=== PATIENT | female | born 1985 | race Caucasian/White ===

== ENCOUNTER 2021-07-18 18:19 | Emergency (ER) | payer BC, SELFPAY ==
--- NOTE | ~2021-07-18 | XR_ITS ---
XR ankle RT min 3V DATE: 07/18/2021 18:40 INDICATION: Right ankle pain and swelling after rolling ankle TECHNIQUE: 4 views COMPARISON: None FINDINGS: There is mild to moderate lateral soft tissue swelling. No fracture or dislocation of the a nkle or disruption of the ankle mortise. No periosteal reaction or bone destruction. IMPRESSION: Mild to moderate lateral soft tissue swelling; no fracture or dislocation Reviewed, dictated and finalized at location A. IMPRESSION: Mild to moderate lateral soft tissue swelling; no fracture or dislo cation
[2021-07-18 18:29] VITALS: BP 104/61; PULSE 88; RESP 18; TEMP 37; O2SAT 98
--- NOTE | 2021-07-18 18:43 | ED.LOWEXIN ---
HPI - Extremity Injury (Lower) General Chief Complaint: Extremity Injury, Lower Stated Complaint: injury to right ankle Source: patient Mode of arrival: wheelchair Limitations: no limitations History of Present Illness HPI Narrative: Patient is a 36-year-old female who presents complaining of right ankle pain. Patient reports twisting ankle while standing earlier this afternoon. She reports falling and hitting buttocks. Patient is 27 weeks . She denies abdominal pain, lower back pain or vaginal bleeding. She denies all other complaints at this time. She reports taking Tylenol and resting injury and adding ice. She denies significant medical history. Related Data Home Medications Medication Instructions Recorded Confirmed PNV,calcium [id number] acid 1 tablet PO DAILY 07/18/21 07/18/21 [PrePlus] Allergies Allergy/AdvReac Type Severity Reaction Status Date / Time hydrocodone AdvReac Vomiting Verified 07/18/21 18:55 Review of Systems Review of Systems: CONSTITUTIONAL: Denies fever, chills, or sweats. EYES: Denies visual changes, redness, or discharge. ENT: Denies rhinorrhea, congestion, sore throat, or otalgia. CARDIOVASCULAR: Denies chest pain, palpitations, or edema. RESPIRATORY: Denies cough or dyspnea. GASTROINTESTINAL: Denies abdominal pain, nausea, vomiting, or diarrhea. GENITOURINARY: Denies dysuria or hematuria. SKIN: Denies rash or itching. MUSCULOSKELETAL: Right ankle pain NEUROLOGIC: Denies headache, numbness, dizziness, or weakness. PSYCHIATRIC: Denies anxiety or depression. [facility] Past Medical History Medical History (Updated 07/18/21 @ 18:52 by AVERY Fragoso) Allergies Surgical History Surgical History No history of previous surgery Family History Family History Father Hypertension Mother No problems noted. Social History Social History Smoking status: Never smoker Second hand tobacco smoke exposure: No Alcohol intake: current Substance use: never Gender identity (if verbalized by the patient): Female Comments At the time of signature, I have reviewed and agree with nursing past medical, surgical, social, and family history unless otherwise noted. Please see nursing chart for further information. There is no relevant family history pertinent to the presenting complaint. Exam Narrative: GENERAL: Well-appearing, well-nourished, and in no acute distress. HEAD: Normocephalic, atraumatic. EYES: EOMI. No redness or drainage. Conjunctiva are normal. ENT: Mucous membranes pink and moist. Nares clear. No rhinorrhea. TMs normal bilaterally. Throat normal. Uvula midline. NECK: AROM. Supple. No lymphadenopathy. CHEST: No respiratory distress. Clear to auscultation. HEART: Regular rate and rhythm. No murmur appreciated. Normal peripheral pulses. GI: Soft, nontender without rebound, or guarding. No distention. Bowel sounds normal in all quadrants. MUSCULOSKELETAL: No bony tenderness. EXTREMITIES: Normal range of motion. Right ankle lateral edema and tenderness with palpation, distal sensation intact, good capillary refill, pain with range of motion SKIN: Warm, dry, no rash. NEURO: No focal deficits. Alert and oriented x3. Gait steady. PSYCH: Normal affect. No signs of depression or anxiety. Course Vital Signs Vital signs: Vital Signs Temperature 37.0 C 07/18/21 18:29 Pulse Rate 88 07/18/21 18:29 Respiratory Rate 18 07/18/21 18:29 Blood Pressure 104/61 07/18/21 18:29 Pulse Oximetry 98 07/18/21 18:29 Temperature 37.0 C 07/18/21 18:29 Pulse Rate 88 07/18/21 18:29 Respiratory Rate 18 07/18/21 18:29 Blood Pressure 104/61 07/18/21 18:29 Pulse Oximetry 98 07/18/21 18:29 Reviewed Procedures Orthopedic Splinting/Casting Injury #1: Si
== END 2021-07-18 19:10 | disposition home or self-care (01) ==
PROVIDERS: Emergency Provider Nurse Practitioner; PCP Nurse Practitioner
DX: O26.892 Other specified pregnancy related conditions, second trimester (principal); S93.401A Sprain of unspecified ligament of right ankle, initial encounter; S96.911A Strain of unspecified muscle and tendon at ankle and foot level, right foot, initial encounter; Z3A.27 27 weeks gestation of pregnancy; X50.1XXA Overexertion from prolonged static or awkward postures, initial encounter; W19.XXXA Unspecified fall, initial encounter
CPT/HCPCS: 73610; 99213; G0463

== ENCOUNTER 2023-04-12 12:12 | Outpatient (CLI) | payer BC, SELFPAY ==
--- NOTE | ~2023-04-12 | US_ITS ---
EXAMINATION:US venous doppler LE LT INDICATION:Leg swelling TECHNIQUE: Multiple grayscale, color flow and Doppler images of the left lower extremity deep venous systems were obtained and reviewed. COMPARISON:No prior studies for comparison. FINDINGS: The common femoral, superficial femoral and popliteal veins demonstrate normal respiratory variation, augmentation and compressibility. Color flow is also seen within the posterior tibial, pe roneal, greater saphenous and profunda veins. IMPRESSION: 1: No lower extremity deep venous thrombosis. Reviewed, dictated and finalized at location L.
== END 2023-04-12 12:13 | disposition home or self-care (01) ==
LOC: ANHIMG 18:09
PROVIDERS: PCP Nurse Practitioner; Visit Provider Physician Assistant
DX: R60.0 Localized edema (principal)
CPT/HCPCS: 93971

== ENCOUNTER → 2023-08-01 08:53 | Outpatient (CLI) | payer BC, SELFPAY ==
--- NOTE | ~2023-08-01 | US_ITS ---
EXAMINATION: US abdomen complete DATE: 08/01/2023 09:49 INDICATION: Abnormal liver function tests. TECHNIQUE: Multiple grayscale and Doppler ultrasound images of the abdomen were obtained. COMPARISON: None FINDINGS: The visualized portions of the head, body, and tail of the pancreas are normal. The liver i s normal without focal lesion. There is normal flow in main portal vein. The gallbladder is normal in size. No gallstones or gallbladder wall thickening. There is no sonographic Gan sign. The common duct is normal and measures 4 mm. The aorta is normal in caliber. The inferior vena cava is normal. T he kidneys are normal in size. The spleen is normal in size. IMPRESSION: 1. Normal complete abdomen ultrasound. Reviewed, dictated and finalized at location E.
== END ==
PROVIDERS: PCP Physician Assistant; Visit Provider Physician Assistant
DX: R74.01 Elevation of levels of liver transaminase levels (principal)
CPT/HCPCS: 76700

== ENCOUNTER 2023-08-10 00:05 | Day surgery (SDC) | payer BC, SELFPAY ==
[2023-08-03 08:59] VITALS: BMI 26.7
--- NOTE | 2023-08-09 15:16 | PM.HPGS ---
History of Present Illness History of Present Illness Consent: Risks, benefits, and alternatives have been discussed and questions answered. Patient agrees to proceed with procedure. Chief complaint: Irritable bowel syndrome with constipation Narrative: Tessa Light is a 38 year old female referred for investigation of a change in bowel habits. She has developed worsening constipation Beginning about 2 years ago. He may not have a bowel movement for 2-3 days. At times her stools can be soft and often she feels as though she is not empty she has no blood her stools. There is no family history of colorectal malignancy. Review of Systems Review of Systems: All systems reviewed & are unremarkable except as noted in HPI and below PMFSH Past Medical History Medical History Allergies Surgical History Surgical History No history of previous surgery Family History Family History Father Hypertension Mother No problems noted. Social History Social History Smoking status: Never smoker Second hand tobacco smoke exposure: No Alcohol intake: current Drinks per week: 2 Substance use: never Substance use type: does not use Living arrangements: other Gender identity (if verbalized by the patient): Female Meds Home Medications and Allergies Home Medications Medication Instructions Recorded Confirmed Type vitamin with calcium 1 tablet PO DAILY 07/18/21 08/10/23 History no.72-iron 27 mg-folic acid 1 mg tablet (PrePlus) loratadine 10 mg tablet (Claritin) 10 mg PO DAILY 08/03/23 08/10/23 History Allergies Allergy/AdvReac Type Severity Reaction Status Date / Time hydrocodone AdvReac Vomiting Verified 08/10/23 09:52 Exam Const: General: alert Orientation/consciousness: patient oriented x3 Resp: Auscultation: clear to auscultation bilaterally Cardio: Rate: regular rate Rhythm: regular rhythm GI: GI Palp: Yes Soft to palpation and No Tenderness to palpation present (GI) Neuro: General: patient oriented x3 Assessment and Plan Assessment and plan (1) Change in bowel habits: Code(s): R19.4 - Change in bowel habit Status: Acute Assessment and Plan: Colonoscopy with possible biopsy or polypectomy or cautery or injection of substances.
[2023-08-10] MEDS: LACTATED RINGERS 1,000 ML 150 ML IV CONT (09:51)
[2023-08-10 09:53] VITALS: BP 114/76; PULSE 66; RESP 16; TEMP 36.3; O2SAT 97; BMI 25.5
--- NOTE | 2023-08-10 10:39 | WPDANESEPPF ---
Anes - Initial Pre Proc Eval Procedure: Operation Date: 08/10/23 11:00 Proposed Procedures p Colonoscopy - Morgan Blas MD Date/Time: 08/10/23 10:39 Surgeon: Morgan Blas MD Pre Op Diagnosis: Irritable bowel syndrome with constipation Patient Data Age: 38 Gender: F Height: 1.7 m Weight: 74 kg Last Vital Signs Temp 97.4 F L 08/10/23 09:53 Pulse 66 08/10/23 09:53 Resp 16 08/10/23 09:53 BP 114/76 08/10/23 09:53 Pulse Ox 97 08/10/23 09:53 O2 Del Method Room Air 08/10/23 09:53 Allergies Allergy/AdvReac Type Severity Reaction Status Date / Time hydrocodone AdvReac Vomiting Verified 08/10/23 09:52 Home Medications Medication Instructions Recorded Confirmed Type vitamin with calcium 1 tablet PO DAILY 07/18/21 08/10/23 History no.72-iron 27 mg-folic acid 1 mg tablet (PrePlus) loratadine 10 mg tablet (Claritin) 10 mg PO DAILY 08/03/23 08/10/23 History Patient hx anesthesia problems: none Family hx anesthesia problems: none Results Review: All pre-operative results and documents have been reviewed as part of the pre-operative evaluation. [facility] Past Medical History Medical History Allergies Surgical History Surgical History No history of previous surgery Family History Family History Father Hypertension Mother No problems noted. Social History Social History Smoking status: Never smoker Second hand tobacco smoke exposure: No Alcohol intake: current Drinks per week: 2 Substance use: never Substance use type: does not use Living arrangements: other Gender identity (if verbalized by the patient): Female Anes - Eval Final PreProcedure Day of Procedure 08/10/23 10:39 Patient weight: normal Heart: regular rate and rhythm Lungs: clear to auscultation Airway: Mallampati scale class II Neurological: alert and oriented Last oral intake: >/= 8 hours ASA classification: II Emergent: no Anesthetic plan: proceed Anesthesia type and monitoring: general GIVS and standard monitoring Results Review: All pre-operative results and documents have been reviewed as part of the pre-operative evaluation. Informed Consent: The patient's anesthetic plan and its attendant risks and benefits were discussed with the patient/family/POA. Questions were solicited and answers provided to the satisfaction of the patient/family/POA.
[2023-08-10 11:15] VITALS: BP 100/60; PULSE 68; RESP 18; O2SAT 99
[2023-08-10 11:25] VITALS: BP 103/70; PULSE 70; RESP 18; O2SAT 100
[2023-08-10 11:35] VITALS: BP 106/75; PULSE 62; RESP 20; O2SAT 100
== END 2023-08-10 11:45 | disposition home or self-care (01) ==
PROVIDERS: PCP Physician Assistant; Visit Provider Internal Medicine Gastroenterology
PROC: 0DJD8ZZ Inspection of Lower Intestinal Tract, Via Natural or Artificial Opening Endoscopic (ICD-10-PCS; CPT 45378; principal; 2023-08-10 11:00)
DX: K59.00 Constipation, unspecified (principal)
CPT/HCPCS: 45378; J2704; J7120

== ENCOUNTER → 2023-08-29 08:12 | Outpatient (CLI) | payer BC, SELFPAY ==
--- NOTE | ~2023-08-29 | CT_ITS ---
. EXAMINATION: CT abdomen pelvis w con DATE: 08/29/2023 08:45 INDICATION: Elevated liver enzymes TECHNIQUE: Computed tomography (CT) of the abdomen and pelvis was performed with 100 CC Omnipaque 350 intravenous contrast. Automated exposure control and iterative reconstruction technique were employe d. Exam dose: 652.11 mGy-cm total exam DLP. COMPARISON: 08/01/2023 complete abdominal ultrasound examination, reported normal FINDINGS: The lung bases are clear of infiltrate or consolidation. Normal heart size. No pericardial or pleural effusion. There is diffuse hepatic steatosis. No hepatic, splenic, pancreatic, adrenal or renal space-occupying mass lesion is detected. The gallbladder is present. No gallbladder wall thickening or pericholecyst ic fluid or fat stranding. No bile duct or pancreatic duct dilatation. No urinary tract calculus or hydroureteronephrosis. Normal caliber of the abdominal aorta. No intraperitoneal or retroperitoneal or pelvic mass lesion or adenopathy or ascites. The urinary bladder appears normal. Retroverted uterus. Bilateral ovarian cysts, measuring up to approximately 1.9 cm on the right with 4 cm on the left. Normal appendix. No bowel obstruction, bowel wall thickening, pneumatosis or intraperitoneal free air . Small fat-containing umbilical hernia. Included skeletal structures are unremarkable. IMPRESSION: Hepatic steatosis Normal appendix Retroverted uterus Bilateral ovarian cysts Reviewed, dictated and finalized at Location A. Reviewed, dictated and finalized at location L.
--- NOTE | ~2023-08-29 | XR_ITS ---
XR ankle LT min 3V DATE: 08/29/2023 08:22 INDICATION: Pain and swelling laterally. No injury. TECHNIQUE: 4 views COMPARISON: None FINDINGS: No soft tissue swelling is noted. No fracture or dislocation of the ankle or disruption of the ankle mortise. No periosteal reaction or bone destruction. IMPRESSION: Negative Reviewed, dictated and finalized at location L. IMPRESSION: Negative
== END ==
PROVIDERS: PCP Physician Assistant; Visit Provider Physician Assistant
DX: R74.01 Elevation of levels of liver transaminase levels (principal); M25.572 Pain in left ankle and joints of left foot; K76.0 Fatty (change of) liver, not elsewhere classified; N85.4 Malposition of uterus; N83.202 Unspecified ovarian cyst, left side; N83.201 Unspecified ovarian cyst, right side
CPT/HCPCS: 73610; 74177; Q9967

== ENCOUNTER 2023-11-23 18:56 | Emergency (ER) | payer SELFPAY ==
--- NOTE | 2023-11-23 19:10 | ED.EAR ---
HPI - Ear Problem General Chief complaint: Ear Stated complaint: bilateral ear pain Time Seen by Provider: 11/23/23 19:10 Source: patient Mode of arrival: ambulatory Limitations: no limitations History of Present Illness HPI Narrative: Estelle is a 38-year-old female patient presenting to the clinic today with complaints of bilateral ear pain x2 days. Notes that she has had decreased hearing, feeling of fullness, and drainage coming from the ears. History of tubes in the ears. Denies fever or chills. Does have nasal congestion with sinus drainage Related Data Home Medications Medication Instructions Recorded Confirmed loratadine 10 mg tablet (Claritin) 10 mg PO DAILY 08/03/23 11/23/23 Allergies Allergy/AdvReac Type Severity Reaction Status Date / Time hydrocodone AdvReac Vomiting Verified 11/23/23 19:18 Review of Systems Review of Systems: Pertinent positives per HPI. Patient denies any fever, chills, rash, headache, visual changes, dizziness, cough, shortness of breath, chest pain, palpitations, nausea, vomiting, diarrhea, constipation, abdominal pain, or any urinary issues. PMFSH Past Medical History Medical History Allergies Surgical History Surgical History No history of previous surgery Family History Family History Father Hypertension Mother No problems noted. Social History Social History Smoking status: Never smoker Second hand tobacco smoke exposure: No Alcohol intake: current Drinks per week: 2 Substance use: never Substance use type: does not use Living arrangements: other Gender identity (if verbalized by the patient): Female Comments At the time of my signature, I reviewed and agree with the nursing past medical, surgical, social, and family history. There is no relevant family history pertinent to the patient complaint. Exam Narrative: General: Well-developed, well nourished, in no apparent distress Head: Normocephalic, atraumatic Eyes: Pupils equally round and reactive to light bilaterally, EOM intact, sclera and conjunctive clear, no discharge, lids normal Ears: TMs intact and congested, ear canals clear, no drainage, grossly hearing normal. Nose: Nares patent, clear nasal discharge, no inflammation, no sinus tenderness. Mouth: Oral pharynx without lesions or masses, good dentition, MMM. Neck: Supple, trachea midline, no enlargement of anterior or posterior cervical nodes, no thyroid masses or goiter palpable. Cardio: Regular rate and rhythm, s1 and s2 normal, no murmur appreciated. Resp: Clear to auscultation bilaterally, no rhonchi, rales, wheezing or rubs Course Course Emergency Course: Portions of this record may have been created with voice recognition software. Level of Care: Express Care Visit Vital Signs Vital signs: Vital signs reviewed Medical Decision Making MDM Narrative Medical decision making narrative: At the time of visit patient is resting comfortably on the exam table. Patient appears to be nontoxic. Plan: I suspect patient has serous otitis. Prescription for prednisone was sent to the pharmacy. Supportive measures were discussed with the patient and they voiced understanding discharge instructions and agrees to treatment plan. Return precautions reviewed Differential Diagnosis Differential Diagnosis: Otitis media, otitis externa, eustachian tube dysfunction, upper respiratory infection, serous otitis Discharge Plan Discharge Clinical Impression: Acute serous otitis media Qualifiers: Laterality: bilateral Recurrence: non-recurrent Qualified Code(s): H65.03 - Acute serous otitis media, bilateral Patient Disposition: Home, Self-Care Condition: Stable Instructions:
[2023-11-23 19:19] VITALS: BP 109/73; PULSE 66; RESP 16; TEMP 36.6; O2SAT 98
== END 2023-11-23 19:27 | disposition home or self-care (01) ==
PROVIDERS: Emergency Provider Nurse Practitioner Family; PCP Physician Assistant
DX: H65.03 Acute serous otitis media, bilateral (principal); Z79.899 Other long term (current) drug therapy
CPT/HCPCS: 99213; G0463

== ENCOUNTER 2023-12-30 19:40 | Emergency (ER) | payer BC, SELFPAY ==
[2023-12-30 20:00] VITALS: BP 129/80; PULSE 79; RESP 18; TEMP 36.6; O2SAT 100
--- NOTE | 2023-12-30 20:16 | ED.URI ---
HPI - URI/Sore Throat General Chief Complaint: Upper Respiratory Infection Stated Complaint: sorethroat Time Seen by Provider: 12/30/23 20:05 Source: patient Mode of arrival: ambulatory Limitations: no limitations History of Present Illness HPI Narrative: Estelle is a 38-year-old female patient presenting to the clinic today with complaints of a sore throat. States her whole family has tested positive for strep today in the clinic. MD elicited complaint: sore throat and nasal congestion Related Data Home Medications Medication Instructions Recorded Confirmed loratadine 10 mg tablet (Claritin) 10 mg PO DAILY 08/03/23 12/30/23 Allergies Allergy/AdvReac Type Severity Reaction Status Date / Time hydrocodone AdvReac Vomiting Verified 12/30/23 20:02 Review of Systems Review of Systems: Pertinent positives per HPI. Patient denies any fever, chills, rash, headache, visual changes, dizziness, cough, shortness of breath, chest pain, palpitations, nausea, vomiting, diarrhea, constipation, abdominal pain, or any urinary issues. PMFSH Past Medical History Medical History (Updated 12/30/23 @ 20:17 by Yoel White APRN) Allergies Surgical History Surgical History No history of previous surgery Family History Family History Father Hypertension Mother No problems noted. Social History Social History Smoking status: Never smoker Second hand tobacco smoke exposure: No Alcohol intake: current Drinks per week: 2 Substance use: never Substance use type: does not use Living arrangements: other Gender identity (if verbalized by the patient): Female Comments At the time of my signature, I reviewed and agree with the nursing past medical, surgical, social, and family history. There is no relevant family history pertinent to the patient complaint. Exam Narrative: General: Well-developed, well nourished, in no apparent distress Head: Normocephalic, atraumatic Eyes: Pupils equally round and reactive to light bilaterally, EOM intact, sclera and conjunctive clear, no discharge, lids normal Ears: TMs intact and congested, ear canals clear, no drainage, grossly hearing normal. Nose: Nares patent, clear discharge, no inflammation, no sinus tenderness. Mouth: Oral pharynx red without lesions or masses, good dentition, MMM. Neck: Supple, trachea midline, no enlargement of anterior or posterior cervical nodes, no thyroid masses or goiter palpable. Cardio: Regular rate and rhythm, s1 and s2 normal, no murmur appreciated. Resp: Clear to auscultation bilaterally, no rhonchi, rales, wheezing or rubs Course Course Emergency Course: Portions of this record may have been created with voice recognition software. Level of Care: Express Care Visit Vital Signs Vital signs: Vital Signs Temperature 36.6 C 12/30/23 20:00 Pulse Rate 79 12/30/23 20:00 Respiratory Rate 18 12/30/23 20:00 Blood Pressure 129/80 12/30/23 20:00 Pulse Oximetry 100 12/30/23 20:00 Oxygen Delivery Room Air 12/30/23 20:00 Temperature 36.6 C 12/30/23 20:00 Pulse Rate 79 12/30/23 20:00 Respiratory Rate 18 12/30/23 20:00 Blood Pressure 129/80 12/30/23 20:00 Pulse Oximetry 100 12/30/23 20:00 Oxygen Delivery Room Air 12/30/23 20:00 Vital signs reviewed MDM - URI/Sore Throat MDM Narrative Medical decision making narrative: At the time of visit patient is resting comfortably on the exam table. Patient appears to be nontoxic. Plan: I suspect patient has pharyngitis with strep exposure. Will go ahead and prescribe amoxicillin and if symptoms worsen recommend mother start taking it since the whole family has strep. Supportive measures were discussed with the patient and they voiced understanding nico
== END 2023-12-30 20:20 | disposition home or self-care (01) ==
PROVIDERS: Emergency Provider Nurse Practitioner Family; PCP Physician Assistant
DX: J02.9 Acute pharyngitis, unspecified (principal); Z20.818 Contact with and (suspected) exposure to other bacterial communicable diseases
CPT/HCPCS: 87081; 87880; 99213; G0463

== ENCOUNTER 2024-07-26 17:09 | Emergency (ER) | payer BC, SELFPAY ==
--- NOTE | 2024-07-26 17:15 | ED.URI ---
HPI - URI/Sore Throat General Chief Complaint: Upper Respiratory Infection Stated Complaint: cold symptoms Time Seen by Provider: 07/26/24 17:15 Source: patient, RN notes reviewed and old records reviewed Mode of arrival: ambulatory Limitations: no limitations History of Present Illness HPI Narrative: 39-year-old female presents to the [facility] with complaints of sore throat, runny nose, nonproductive cough for 5-7 days. Patient reports her son tested positive for strep. Denies any medications prior to arrival Related Data Home Medications Medication Instructions Recorded Confirmed loratadine 10 mg tablet (Claritin) 10 mg PO DAILY 08/03/23 07/26/24 escitalopram oxalate 10 mg tablet 10 mg DIRECTED 07/26/24 07/26/24 Allergies Allergy/AdvReac Type Severity Reaction Status Date / Time hydrocodone AdvReac Vomiting Verified 07/26/24 17:19 Review of Systems Review of Systems: All systems reviewed & are unremarkable except as noted in HPI and below Constitutional: Constitutional: Reports no additional constitutional complaints Eyes: Eyes: Reports no additional eye complaints ENT: Reports as per HPI Cardiovascular: Cardiovascular: Reports no additional cardiovascular complaints, Denies chest pain and Denies dyspnea Respiratory: Respiratory: Reports as per HPI, Denies chest congestion, Reports cough and Denies dyspnea Gastrointestinal: Gastrointestinal: Reports no additional gastrointestinal complaints, Denies abdominal pain, Denies nausea and Denies vomiting Musculoskeletal: Musculoskeletal: Reports no additional musculoskeletal complaints Integumentary/Breasts: Skin/Breast: Reports system reviewed and no additional complaints, except as docu Neurologic: Reports system reviewed and no additional complaints, except as documented Psychiatric: Psychiatric: Reports no additional psychiatric complaints Allergic/Immunologic: Allergic/Immunologic: Reports no additional allergic/immunologic complaints [facility] Past Medical History Medical History (Updated 07/27/24 @ 19:19 by Belem Bond APRN) Allergies Surgical History Surgical History No history of previous surgery Family History Family History Father Hypertension Mother No problems noted. Social History Social History Smoking status: Never smoker Second hand tobacco smoke exposure: No Alcohol intake: current Drinks per week: 2 Substance use: never Substance use type: does not use Living arrangements: other Gender identity (if verbalized by the patient): Female Comments At the time of my signature, I reviewed and agree with the nursing past medical, surgical, social, and family history. There is no relevant family history pertinent to the patient complaint. Exam Const: General: cooperative, healthy appearing, comfortable, no acute distress, well developed, alert and well nourished Nutritional Appearance: well nourished Orientation/consciousness: patient oriented x3 Limitations: no limitations HENMT: Head: normal to inspection Ears: hearing grossly normal bilaterally, external ears normal, TM's normal bilaterally, EAC's normal, mastoids normal, no periauricular adenopathy and TM abnormal perforated without discharge (chronic) on the right Face/Nose/Sinus: Normal external nose present, Normal nares present, Normal nasal mucous membranes and turbinates present, normal facial exam and face symmetric Face and sinus: normal facial exam and face symmetric Mouth: Yes Normal oral and palatal mucosa present, Yes lip normal and Yes tongue normal Throat: tonsils normal, uvula midline, postnasal drainage and no uvular edema Eyes: General: appearance normal, both eyes and all related structures Alignment and Position: alignment normal Periorbital: periorbital findings normal
[2024-07-26 17:19] VITALS: BP 104/75; PULSE 69; RESP 14; TEMP 36.2; O2SAT 100
[2024-07-26 17:20] VITALS: BP 104/75; PULSE 69; RESP 14; TEMP 36.2; O2SAT 100
[2024-07-29 14:27] LABS: EDSTREPNEGPOS1 Negative (Negative)
== END 2024-07-26 17:34 | disposition home or self-care (01) ==
PROVIDERS: Emergency Provider Nurse Practitioner
DX: J06.9 Acute upper respiratory infection, unspecified (principal); J02.9 Acute pharyngitis, unspecified
CPT/HCPCS: 87081; 87880; 99213; G0463

== ENCOUNTER 2025-10-24 08:03 | Emergency (ER) | payer BC, SELFPAY ==
--- OUTSIDE RECORDS SUMMARY | 2013-12-17 09:08 | XMS_ITS | Continuity of Care Document ---
Author Organization [facility] Address [address] [facility] [address] [place] [address] Phone Care Team Providers Care Supervisor Fertilizer Name Role Phone Maximus Santana MD Unavailable Unavailable Allergies, Adverse Reactions, Alerts Substance Reaction Status Criticality No Known allergies Medications Medication Instructions Dosage Effective Dates (start - stop) Status Comments tizanidine 4 mg tablet take 1 tablet by oral route at bedtime - Active tizanidine 4 mg tablet take 1 tablet by oral route at bedtime - No Longer Active Procedures Procedure Date OFFICE/OUTPATIENT VISIT [facility] Advance Directives Directive Yes / No Effective Date File Name No Information Encounters Encounter Description Practice Location Reason(s) For Visit Diagnoses Date Provider Providers Copied on Encounter [facility], [address] [place] [address], [address], tel:[phone] [facility] No Information 4 Max Stroud. [address] [place], [place], [id number] . tel: [phone] [facility], [address] [place] [address], [address], [place] tel:[phone] [facility] No Information 4 Max Stroud. [address] [place], [place], [id number] . tel: [phone] OFFICE/OUTPAT IENT VISIT [facility], [address] [place] [address], [place], [address], tel:[phone] [facility] Low back pain 4 Max Stroud. [address] [facility], [place], [place], [id number] . tel: [phone] Referring Provider: Adithya Moncada, [address] [place], [address] . tel:[phone] Family History Family Member Type Diagnosis Age At Onset No Information Payers Payer name Insurance type Covered libertarian ID Authoriza tion(s) No Information Social History Type Description Quantity Date Captured Comments Sex Female Smoking Status No Information Chief Complaint And Reason For Visit No Information Reason For Referral Reason For Referral No Information History Of Present Illness Encounter Date Complaint History Of Prese nt Illness No Information Functional Status Date Functional Assessmen t No Information Medications Administered Medication Instructions Dosage Effective Dates (start - stop) Status Comments tizanidine 4 mg tablet take 1 tablet by oral route at bedtime - No Longer Active Instructions Date Instruction Additional Infor gabriella advised against bed rest exceeding 4 days maintain normal activity Physical activity counseling Rel ated to Dietary Surveillance Counseling Assessments Type Assessment Date No Information Patient Care Teams Name Effective Dates (start - stop) Status Members No Information
--- NOTE | ~2025-10-24 | CT_ITS ---
EXAMINATION: CTA BRAIN/CAROTID DATE: 10/24/2025 11:04 INDICATION: Neck pain and visual changes TECHNIQUE: Computed tomographic angiography (CTA) of the head and neck was performed with 100 mL Omnipaque-350 intravenous contrast. Multiplanar reconstructions and maximum intensity projection 3D-reconstructions of the carotid arteries and of the intracranial arteries were created by the technologist on a separate workstation. Precontrast CT of the head was also obtained. Automated exposure control and iterative reconstruction technique were employed.The dose-length product was 1709.13 mGy-cm. COMPARISON: None. FINDINGS: Head: No acute intracranial hemorrhage, acute infarction or abnormal extra axial fluid collection. Ventricles are normal and symmetric. No mass/mass effect. No abnormally enhancing brain lesions on postcontrast imaging. The orbits and mastoid air cells are normal. Mucosal thickening in the paranasal sinuses, moderate at the right maxillary sinus and mild at the left frontal, ethmoid and maxillary sinuses. Intracranial arteries Vertebral arteries are codominant. There is no hemodynamically significant stenosis in the vertebral, basilar and internal carotid arteries. Both A1 and P1 segments are patent. There are no aneurysms identified. Cerebral arterial arborization appears symmetric. Carotid arteries: The aortic arch and the great vessels arising from the arch are normal in caliber with no dissection or hemodynamically significant stenosis. There is no evident atherosclerotic plaque with 0% stenosis of the right and left carotid bulbs relative to normal distal artery lumen diameter (NASCET criteria). Visualized upper lungs are clear. Cervical soft tissues are unremarkable. Mild to moderate lower cervical predominant spondylosis. IMPRESSION: 1. No evident atherosclerotic plaque with 0% stenosis of the right and left carotid bulbs relative to normal distal artery lumen diameter (NASCET criteria). 2. No acute intracranial process or abnormally enhancing brain lesions. 3. Unremarkable cerebral CT angiogram with no hemodynamically significant stenosis, aneurysm or thrombosis. Reviewed, dictated and finalized at location A. ATOR IMPRESSION: 1. No evident atherosclerotic plaque with 0% stenosis of the right and left car otid bulbs relative to normal distal artery lumen diameter (NASCET criteria). 2. No acute intracranial process or abnormally enhancing brain lesions. 3. Unremarkable cerebral CT angiogram with no hemodynamically significant steno sis, aneurysm or thrombosis.
--- OUTSIDE RECORDS SUMMARY | 2025-10-24 08:05 | XMS_ITS | Data Portability ---
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 Plan of Treatment Reminders Order Date Submit Date Provider Last Modified By Organization Details Last Modified Time Details Appointments None recorded. Lab TSH + free T4, serum 2024 025 [employer] [place] [address], [address], 5 14:22:15 lipid panel, serum 2024 025 [employer] [place] [address], [address], 5 14:22:15 CMP, serum or plasma 2024 025 [employer] [facility], [address] [place] [address], [address], 5 14:22:14 CBC w/ auto diff 2024 025 [employer] [place] [address], [address], 5 14:22:15 HbA1c (hemoglobi n A1c), blood 2024 025 [employer] [place] [address] [place], [address], 5 14:22:15 TSH + free T4, serum 2023 024 [facility], [address], [address], 4 16:27:03 lipid panel, serum 2023 024 [facility], [address], [address], 4 16:27:03 CMP, serum or plasma 2023 [facility], [address], [address], 4 10:04:27 CBC w/ auto diff 2023 024 [facility] [employer] [facility], [address] [address], [place], [address], 4 10:04:27 HbA1c (hemoglobi n A1c), blood 2023 024 [facility] [employer] [facility], [address], [address], 4 10:04:27 Referral otolaryngo logist referral [address] [address] [facility], [address] [facility], [address], [place], [address], 5 13:59:31 Procedures None recorded. Surgeries None recorded. Imaging None recorded. Medication Orders escitalopr am 10 mg tablet 2024 025 [facility], [address], [place], [place], [phone], 5 09:01:57 escitalopr am 10 mg tablet [address] [id number], [address], [place], [place], [phone], 5 09:02:31 bupropion HCl XL 150 mg 24 hr tablet, extended release [address] [id number], [address], [place], [place], [id number], 4 18:14:52 Patient TargetsNo targets recorded. 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 Problems Name Problem SNOMED Code Status Onset Date Resolution Date Notes Provider Name and Address Organization Details Recorded Time Body mass index 25-29 - overweight 061238003 Active 025 Herman Vance MA null, [place] - [place] 5 08:52:12 Mild recurrent major depression 14636750 Active 025 FREDI Alfonso Attn: Ursula desai,[address] [facility], [place], [address] [place] [address] - [place] 5 13:52:56 Problem Notes None recorded. Procedures Surgical History Date Name Laterality Status Provider Name and Address Organization Details Recorded Time Dilation and Curettage completed Imelda Colón MA [facility] 02/09/2024 09:24:21 Imaging Results None recorded. Procedure Notes None recorded. Medical Equipment None Reported. Allergies No known drug allergies Medications Name Sig Start Date Stop Date Status Note LastModified by Organization Details LastModified Time prednisone 20 mg tablet TAKE 2 TABLETS BY MOUTH DAILY FOR 5 DAYS 02/08 completed Not Available Not Available Not Available amoxicillin 875 mg tablet TAKE 1 TABLET BY MOUTH EVERY 12 HOURS FOR 10 DAYS 02/08 completed Not Available Not Available Not Available triamterene 37.5 mg-hydrochlo rothiazide 25 mg tablet TAKE 1 TABLET BY MOUTH EVERY DAY 02/08 completed Not Available Not Available Not Available escitalopram 10 mg tablet TAKE 1 TABLET BY MOUTH EVERY DAY active Not Available Not Available No t Available bupropion HCl XL 150 mg 24 hr tablet, extended release Take 1 tablet every day by oral route. 04/25 completed Not Available Not Available Not Available Lo Loestrin Fe 1 mg-10 mcg (24)/10 mcg (2) tablet TAKE 1 TABLET BY MOUTH DAILY 02/08 completed Not Available Not Available Not Available Vitals Date Recorded Respiratory rate Provider Name a nd Address Organization Details Last Updated DateTime 11/27/2024 16 /min FREDI Alfonso Attn: Accounting,[address] [place], [address], [facility] 11/27/2024 13:50:20 Date Recorded Body height Body mass index (BMI) Body weight Oxygen saturation Heart rate Systolic And Diastolic Provider Name and Address Organization Details Last Updated DateTime 5 170.18 cm 26.3 kg/m2 38541.5 2 g 97 % 77 /min 116/72 mm[Hg] Herman Vance MA ID - [facility] 5 08:55:32 Date Recorded Systolic And Diastolic Provider Name and Address Organization Details Last Updated DateTime 02/09/2024 120/80 mm[Hg] FREDI Alfonso Attn: Accounting,[address] [place], [address], [facility] 02/09/2024 09:35:49 Date Recorded Body height Body mass index (BMI) Body weight Heart rate Body temperature Oxygen saturation Systolic And Diastolic Provider Name and Address Organization Details Last Updated DateTime 4 170.18 cm 25.7 kg/m2 93919.5 9 g 64 /min 98.2 [degF] 98 % 100/74 mm[Hg] Imelda Colón MA ID - [place] 09:16:49 Social History Question Answer Notes LastModified by Organizat ion Details LastModified Time Tobacco Smoking Status Never Smoker Imelda Colón MA null, [facility] 02/09/2024 09:24:53 Do You Have An Advance Directive? No Information n ot available 11/27/2024 Are You Blind Or Do You Have Difficulty Seeing? No Information n ot available 02/09/2024 What Is Your Level Of Caffeine Consumption? Heavy Information not available 11/27/2024 In The 14 Days Before Symptom Onset, Have You Had Close Contact With A Laboratory-confirm ed COVID-19 While That Case Was Ill? No Information n ot available 11/27/2024 In The 14 Days Before Symptom Onset, Have You Had Close Contact With A Person Who Is Under Investigation For COVID-19 While That Person Was Ill? No Information not available 11/27/2024 Have You Been To An Area Known To Be High Risk For COVID-19? No Information not available 11/27/2024 Are You Deaf Or Do You Have Serious Difficulty Hearing? No Information not available 02/09/2024 What Type Of Diet Are You Following? REGULAR Information n ot available 11/27/2024 What Was The Date Of Your Most Recent Tobacco Screening? 11/27/2024 Information not available 11/27/2024 Do You Use Your Seat Belt Or Car Seat Routinely? Yes Information not available 11/27/2024 Do You Have Smoke And Carbon Monoxide Detectors In Your Home? Yes Information not available 11/27/2024 Has Tobacco Cessation Counseling Been Provided? No Information not available 11/27/2024 Sex: Female Functional Status Question Answer Note LastModified by Organizat ion Details LastModified Time Do you use any illicit or recreational drugs? No Information not available 11/27/2024 Do you or have you ever used any other forms of tobacco or nicotine? No Information not available 11/27/2024 What is your level of alcohol consumption? Occasional Information not available 02/09/2024 Are you currently employed? Yes Information not available 11/27/2024 Are you able to care for yourself independently? Yes Information not available 02/09/2024 Mental Status None recorded. Family History Relationship Description Onset Age of this Age Resolved Age Notes LastModified by Organization Details LastModified Time Father Dementia [email or web address] Not availabl e 02/09/2024 09:24:31 Father Hypertensive disorder [email or web address] Not available 2023 09:24:38 Father Hypercholest erolemia apaytonma Not available 2023 09:24:43 Mother Hypertensive disorder apaytonma Not available 2023 09:24:38 Medical History Condition Response Allergies Y Gynecological History Statement/Question Response Frequency of Cycle (Q days) 29 Date of LMP 11/25/2024 Menses Monthly Y Duration of Flow (days) 4 Current Control Method None LMP Approximate Obstetrics History GPAL:G 0 P 0 0 0 0 Immunizations Vaccine Type Date Status Note Provider Nam e and Address Organization Details Recorded Time COVID-19, mRNA, LNP-S, PF, 30 mcg/0.3 mL dose 01/12/2021 completed Herman Vance [place] null, [place] [facility] 11/27/2024 08:50:45 COVID-19, mRNA, LNP-S, PF, 30 mcg/0.3 mL dose 02/07/2021 completed Herman Vance [place], [place] [facility] 11/27/2024 08:50:45 COVID-19, mRNA, LNP-S, PF, 30 mcg/0.3 mL dose 09/10/2021 completed Herman V[place], [place] [facility] 11/27/2024 08:50:45 COVID-19, mRNA, LNP-S, bivalent, PF, 30 mcg/0.3 mL dose 08/17/2022 completed Herman V[place] [facility] 11/27/2024 08:50:45 Influenza, split virus, quadrivalent, PF 07/29/2020 completed Herman V[place] [facility] 11/27/2024 08:50:45 Influenza, split virus, quadrivalent, PF 08/03/2023 completed Herman V[place], [place] [facility] 11/27/2024 08:50:45 Influenza, split virus, quadrivalent, PF 08/17/2022 completed Herman V[place] [facility] 11/27/2024 08:50:45 Influenza, split virus, quadrivalent, PF 09/26/2018 completed Herman V[place] [facility] 11/27/2024 08:50:45 Past Encounters Encounter ID Performer Location Encounter Start Date Encounter Closed Date Diagnosis/Indication Diagnosis SNOMED-CT Code Diagnosis ICD10 Code Diagnosis IMO Codes Diagnosis Note [id number] Shai Rice MD [facility] [employer] [address] [place] [address] 02/09/2024 08:56:51 02/09/2024 09:45:00 Pain of left ankle joint 9965989911 7569916 M25.572 proper shoe wear and if pain continues, she is to see team ortho doctor through her work as [employer] employee. Mild recur rent major depression 60894956 F33.0 start trial of wellbutrin XL 150mg daily. Pt to seek ER with any S.I. She will call with any intoleranc e, side effects or lack of efficacy issues. Long-term drug therapy 124444107 Z79.899 routine CMP and CBC ordered. Cholesterol screening 27 6865471 Z13.220 fasting lipids ordered Diabetes m ellitus screening 872704077 Z13.1 a1c screening ordered Thyroid di sorder screening 406752837 Z13.29 Thyroid panel ordered. 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 Cholesterol screening 27 2368282 Z13.220 fasting lipids ordered Diabetes m ellitus screening 719504712 Z13.1 a1c screening ordered Thyroid di sorder screening 946673309 Z13.29 Thyroid panel ordered. Health Concerns Section Related Observation LastModified by Organization Detai ls LastModified Time None Recorded Concern Status LastModified by Organization Details LastModified Time None Recorded Advance Directives Directive N: Payers Insurance Date Sequence Insurance Name Policy Number Policy Freire Covered Member ID Freire Member ID Guarantor Name 11/29/2024 1 [employer] [id number] Tessa B Nadege [id number] Tessa Nadege 11/29/2024 1 [place] [id number] Tessa Nadege [id number] Tessa Nadege Notes Date Note Type Note Provider Name and Address Organization Details Recorded Time 02/09/20 24 text/ht ml Anxiety/DepressionReported by PatientHPIFor quality, patient reportsmood worse. For associated symptoms, patient reportsdepressionbut reportsdenies homicidal ideations,no significant weight gain, andno significant weight loss. For severity, patient reportsdenies suicidal ideations,able to maintain relationships, anddoes not interfere with activities of daily living. For duration, patient reportssymptoms lasting over 2 weeks. For onset/timing, patient reportsstill present. For context, patient reportsno major life stressors. Musculoskeletal PainReported by PatientHPIFor quality, patient reportsdull. For location, patient reportsleft ankle. For severity, patient reportssame. For duration, patient reportspresent <1 month. For timing, patient reportsconstant. For context, patient reportstrauma. For alleviating factors, patient reportsrest. For aggravating factors, patient reportsmovement/positioningandtwi sting. For associated symptoms, patient reportsno fever,no weak limbs,no tingling, andno numbness of the legs/feet. FREDI Alfonso Attn: Accounting, [address] [place], [address], [place] [facility] 02/26/2024 23:18:11 11/27/19 25 text/ht ml Anxiety/DepressionReported by PatientHPIFor associated symptoms, patient reportsanxietyanddepressionbut reportsdenies homicidal ideations,no significant weight gain, andno significant weight loss. For quality, patient reportssymptoms improved. For severity, patient reportsdenies suicidal ideations,able to maintain relationships, anddoes not interfere with activities of daily living. For duration, patient reportsstablizing. For context, patient reportsno major life stressors.Patient is significantly better on Lexapro 10 mg daily and is so happy with the results and efficacy FREDI Alfonso Attn: Accounting, [address] [place], [address], [facility] - [facility] 11/27/2024 13:53:43 OBGyn Episode No OBEpisode recorded.
--- OUTSIDE RECORDS SUMMARY | 2025-10-24 08:05 | XMS_ITS | Clinical Summary ---
Author Organization [facility] Address [address] [place] [address] Care Team Providers Care Mainspring Former Brace End Name Role Phone Unavailable Primary Care Provider Unavailabl e Allergies Active Allergy Reactions Criticality Noted Date Comments Hydrocodone Other (See Comments) 11/13/2020 nausea Medications fluticasone propionate (FLONASE) 50 mcg/spray [place], Suspension nasal inhaler Administer 2 Sprays in each nostril. Active multivitamin (DAILY-MARTÍN) tablet Take 1 Tablet by mouth daily. Active CALCIUM CARBONATE-VITAM IN D3 ORAL Take by mouth. Acti ve CYANOCOBALAMIN, VITAMIN B-12, ORAL Take by mouth. Activ e loratadine (CLARITIN) 10 mg tablet Take 10 mg by mouth daily. Active Active Problems Problem Noted Date Diagnosed Date Status post section 10/11/2021 Resolved Problems Problem Noted Date Diagnosed Date Resolved Date Encounter for elective induction of labor 07/23/2019 02/26/2021 12/29/15, girl 12/29/2015 05/17/2017 History of colonoscopy 04/07/201401/04 Overview (04/07/2014): EGD She has a history of treated bacterial overgrowth EGD and Colonoscopy were normal Encounters Date Type Department Care Team Description 10/21/2025 External Device Data STL ABSTRACTION Provider, Abstract 09/16/2025 External Device Data STL ABSTRACTION Provider, Abstract 08/27/2025 External Device Data STL ABSTRACTION Provider, Abstract 08/27/2025 External Device Data STL ABSTRACTION Provider, Abstract 08/07/2025 10:15 AM CDT Clinical Support [facility] [employer] Nurse Navigation [id number] [place] [address] Need for influenza vaccination (Primary Dx) from Last 3 Months Immunizations Immunization Administration Dates Next Due (ADACEL/BOOSTRIX)(10 YR UP) TDAP VACCINE, 0.5ML, IM 08/19/2021,10/15/2015 INFLUENZA VACCINE QUADRIVALE NT 3 YR UP PF IM 08/08/2017 INFLUENZA VACCINE QUADRIVALE NT 6 MOS UP PF IM 08/03/2023,07/21/2021,07/27/2020,2018 INFLUENZA VACCINE TRIVALENT SPLIT VIRUS, (6 MOS UP), 0.5ML (PF), IM 08/07/2025,07/30/2024 Influenza, Unspecified Formulation 07/21,07/27/2020,07/25/2019,2017,08/08/2017 Rho (D) IMMUNE GLOBULIN 1,50 0 UNIT(300 MCG) INJECTION 12/30/2015 Family History Medical History Relation Name Comments Healthy Brother 1 Healthy Brother 2 Hypertension Father Colon Cancer Maternal Grandmother age 85 Healthy Mother Other Paternal Grandfather Alzheim ers Relation Name Status Comments Brother 1 Alive Brother 2 Alive Father Alive Maternal Grandfather Alive Maternal Grandmother Mother Alive Paternal Grandfather Paternal Grandmother Social History Tobacco Use Types Packs/Day Years Used Date Smoking Tobacco: Never Smokeless Tobacco: Never Alcohol Use Standard Drinks/Week Comments Yes 1.7 (1 standard drink = 0.6 oz p ure alcohol) socially Comments No Sex and Gender Information Value Date Recorded Sex Assigned at Not on file Legal Sex Female 12:06 PM CDT Gender Identity Not on file Sexual Orientation Not on file Last Filed Vital Signs Vital Sign Reading Time Taken Comments Blood Pressure 102/78 11/23/2023 3:52 PM ELECTRICAL WORKER Pulse 71 09/11/2023 12:56 PM ELECTRICAL WORKER Temperature 36.1 C (97 F) 09/11/2023 12:56 PM ELECTRICAL WORKER Respiratory Rate 12 09/11/2023 12:56 PM ELECTRICAL WORKER Oxygen Saturation 98% 09/11/2023 12:56 PM ELECTRICAL WORKER Inhaled Oxygen Concentration - - Weight 72.6 kg (160 lb) 03/07/2024 12:55 PM CDT Height 167.6 cm (5' 6) 03/07/2024 12:55 PM CDT Body Mass Index 25.82 03/07/2024 12:55 PM CDT Plan of Treatment Upcoming Encounters Date Type Department Care Team (Late st Contact Info) Description 11/19/2025 11:40 AM ELECTRICAL WORKER Office Visit [facility] CLOTH TEARER Medical [facility] [address] [facility] [address] [place] [address] Valerie Martinez NP [address] [facility] [address] [place] [id number] Health Maintenance Due Date Last Done Comments HEPATITIS B VACCINES (1 of 3 - 19+ 3-dose series) 2006 PAP SMEAR 11/23/2026 11/23/2023, 09/29, 05/11/2020, Additional history exists CERVICAL CANCER SCREENING 11/23/2028 HPV/Cotest (21-29) 11/23/2028 11/23/2023, 1 12/13/2021, 05/11/2020 HPV/Cotest (30-65) 11/23/2028 11/23/2023, 1 12/13/2021, 05/11/2020 DTAP/TDAP/TD VACCINES (3 - T d or Tdap) 08/19/2031 08/19/2021, 10/15/2015 INFLUENZA VACCINE Completed 08/07/2025, , 08/03/2023, Additional history exists HPV VACCINES (No Doses Required) Completed Procedures Procedure Name Priority Date/Time Associated Diagnosis Comments CERV/VAG CYTO AGE BASED SCREEN PAP Routine 11/23/2023 4:58 PM ELECTRICAL WORKER Encounter for gynecological examination without abnormal finding Screening for human papillomavirus (HPV) from Last 3 Months or Most Recently Relevant to Health Maintenance Results * CERV/VAG CYTO AGE BASED SCREEN PAP (11/23/2023 4:58 PM ELECTRICAL WORKER) COMMENT (PAP): [facility] [place] Comment: This order for age-based cervical cancer and STI screening follows ACOG guidelines(PB 168, 140, KZP434). See individual assays for performing site location. CLINICAL INFORMATION [facility] [place] Comment:Routine exam LAST MENSTRUAL PERIOD [facility] [place] Comment:11/13/2023 PREV PAP: [facility] [place] Comment:10/12/2022 NIL PREV BX: [facility] [place] Comment:NONE GIVEN SOURCE [facility] [place] Comment:Endocervix ADEQUACY: [facility] [place] Comment: Satisfactory for evaluation. Endocervical/transformation zone component present. PAP INTERP [facility] [place] Comment: Cytology Results: Negative for intraepithelial lesion or malignancy. COMMENT (PAP TEST) [facility] [place] Comment: This Pap test has been evaluated with computer assisted technology. PRODUCT DEVELOPER: Deepika Prather[facility] [place] Comment: INDY MCNALLY(ASCP) CT Screening location: [facility] [place] [address] EXPLANATORY NOTE [facility] [place] Comment: EXPLANATORY NOTE: The Pap is a screening test for cervical cancer. It is not a diagnostic test and is subject to false negative and false positive results. It is most reliable when a satisfactory sample, regularly obtained, is submitted with relevant clinical findings and history, and when the Pap result is evaluated along with historic and current clinical information. HPV E6/E7 Not Detected Not Detected [facility] [place] Comment: Methodology: Vocational Coordinator-Mediated Amplification This assay detects E6/E7 viral messenger RNA (mRNA) from 14 high-risk HPV types (16,18,31,33,35,39,45,51,52,56,58,59,66,68). Cervical sources are required for HPV testing. If a vaginal source from a patient who has had a total hysterectomy with removal of cervix was submitted, please contact the testing laboratory for alternative testing options. For additional information, please refer to http://education.OpenSpace/faq/NHN480k1 (This link if provided for information/ educational purposes only.) Test Performed at: [facility] [address] [place], [place] [address] Celia MENDOZA Genital SWAB OF ENDOCERVIX / Unknown 11/23/2023 4:58 PM ELECTRICAL WORKER 11/23/2023 11:06 PM ELECTRICAL WORKER Valerie Martinez NP PATHOLOGY/CYTOLOGY O RDERABLES Final Result [facility] [phone] [facility] [address], [place] [address] from Last 3 Months or Most Recently Relevant to Health Maintenance Insurance BS BLUE ACCESS/TRUE BLUE PPO Advance Directives For more information, please contact: [phone] * Full Code (Latest Code Status on File) Date Activated Date Inactivated Comments 10/11/2021 11:42 AM 10/14/2021 12:43 PM * Full Code Date Activated Date Inactivated Comments 07/24/2019 10:53 PM 07/26/2019 1:33 PM * Full Code Date Activated Date Inactivated Comments 07/23/2019 2:36 PM 07/24/2019 10:53 PM * Full Code Date Activated Date Inactivated Comments 12/29/2015 11:12 PM 12/31/2015 1:16 PM * Full Code Date Activated Date Inactivated Comments 12/29/2015 6:12 AM 12/29/2015 11:12 PM
--- OUTSIDE RECORDS SUMMARY | 2025-10-24 08:05 | XMS_ITS | Encounter Summary ---
Author Organization [facility] Address [address] [place] [address] Care Team Providers Care Hot Plate Press Operator Name Role Phone Ria Blackburn NP Primary Care Provider [phone] Ria Blackburn COMPUTER GAME PROGRAMMER Unavailable [phone] Encounter Details Date Type Department Care Team (Late st Contact Info) Description 12/28/2020 Prep for Procedure [facility] [place], [place] [id number] Trell Goode MD [address] [id number] Social History Tobacco Use Types Packs/Day Years Used Date Smoking Tobacco: Never Smokeless Tobacco: Never Alcohol Use Standard Drinks/Week Comments Yes 0 (1 standard drink = 0.6 oz pur e alcohol) socially PHQ-2 Answer Date Recorded PHQ-2 Score - If the patient scores above 3, please move on to questions 3-9 1 05/13/2020 Comments No Sex and Gender Information Value Date Recorded Sex Assigned at Not on file Legal Sex Female 8:05 PM CDT Gender Identity Not on file Sexual Orientation Not on file COVID-19 Exposure Response Date Recorded In the last month, have you been in contact with someone who was confirmed or suspected to have Coronavirus / COVID-19? No / Unsure 12/31/2020 7:07 AM PLEATER HAND documented as of this encounter Plan of Treatment Not on file documented as of this encounter Results * PRE-SURGICAL/PRE-PROCEDURE CORONAVIRUS (COVID 19) (12/28/2020 9:45 AM PLEATER HAND) CORONAVIRUS SARS COV 2 PCR (RESP) NOT DETECTED NOT DETECTED 12/29/2020 11:21 PM PLEATER HAND [facility] Comment: A Not Detected (negative) test result for this test means that SARS- CoV-2 RNA was not present in the specimen above the limit of detection. A negative result does not rule out the possibility of COVID-19 and should not be used as the sole basis for treatment or patient management decisions. If COVID-19 is still suspected, based on exposure history together with other clinical findings, re-testing should be considered in consultation with public health authorities. Laboratory test results should always be considered in the context of clinical observations and epidemiological data in making a final diagnosis and patient management decisions. Please review the Fact Sheets and FDA authorized labeling available for health care providers and patients using the following websites: https://www.[employer].PagerDuty/home/Covid-19/HCP/[facility]/fact- sheet.html https://www.[employer].PagerDuty/home/Covid-19/Patients/ [facility]/fact-sheet.html This test has been authorized by the FDA under an Emergency Use Authorization (EUA) for use by authorized laboratories. Due to the current public health emergency, [facility] is receiving a high volume of samples from a wide variety of swabs and media for COVID-19 testing. In order to serve patients during this public health crisis, samples from appropriate clinical sources are being tested. Negative test results derived from specimens received in non-commercially manufactured viral collection and transport media, or in media and sample collection kits not yet authorized by FDA for COVID-19 testing should be cautiously evaluated and the patient potentially subjected to extra precautions such as additional clinical monitoring, including collection of an additional specimen. Methodology: Nucleic Acid Amplification Test (NAAT) includes RT-PCR or TMA Additional information about COVID-19 can be found at the [facility] website: www.Pict.PagerDuty/Covid19. Test performed at [facility] [address] [address] Director: CHALO DUMONT DO,MPH FIRST TEST NO 12/28/2020 10:33 AM [facility] EMPLOYED IN HEALTHCARE NO 12/28/2020 10:33 AM [facility] SYMPTOMATIC DEFINED BY CDC NO 12/28/2020 10:33 AM [facility] DATE OF SYMPTOM ONSET NO 12/28/2020 10:54 AM [facility] HOSPITALIZATION STATUS NO 12/28/2020 10:33 AM [facility] PATIENT IN ICU NO 12/28/2020 10:33 AM [facility] RESIDENT OF [facility] NO 12/28/2020 10:33 AM [facility] NOT 12/28/2020 10:33 AM [facility] PATIENT'S RACE WHITE OR 12/28/2020 10:33 AM [facility] ETHNICITY NONHISPANIC 12/28/2020 10:33 AM [facility] SOURCE (QST) NASOPHARYNGEAL SWAB 12/28/2020 10:33 AM [facility] NASOPHARYNGEAL SWAB / Unknown 12/28/2020 9:45 AM PLEATER HAND us Trell Goode MD MICROBIOLOGY - GENERAL ORDERABLE S Final Result [facility] [address] [place] [address], [facility] [address] [place] [address] documented in this encounter Visit Diagnoses Diagnosis Acid reflux- Primary Esophageal reflux documented in this encounter Additional Health Concerns Infection Onset Date Last Indicated Resolved Time COVID-19 Rule Out 12/28/2020 12/28/2020 12/29/2020 11:21 PM PLEATER HAND documented as of this encounter Care Teams Hot Plate Press Operator Relationship Specialty Start Date End Date Ria Blackburn NP [address] [place] [address] PCP - General NURSE PRACTITIONER 05/13/20 Ria Blackburn NP [address] [facility], [address] [place] [address] NURSE PRACTITIONER 05/13/20 documented as of this encounter
--- OUTSIDE RECORDS SUMMARY | 2025-10-24 08:05 | XMS_ITS | Clinical Summary ---
Author Organization [facility] Address [address] [place] [address] Care Team Providers Care Tent Assembler Name Role Phone Ria Blackburn NP Primary Care Provider [phone] Ria Blackburn NP Unavailable [phone] Allergies Active Allergy Reactions Criticality Noted Date Comments Hydrocodone Vomiting 11/13/2020 Medications fluticasone propionate 50 MCG/ACT nasal spray 2 sprays by Nasal route daily. Active loratadine 10 MG tablet Take 10 mg by mouth daily. Active multi vitamin/mineral s tablet Take 1 tablet by mouth daily. Active vitamin D3, cholecalciferol , 5000 UNITS capsule Take 1 capsule by mouth daily. Active LO LOESTRIN FE 1 MG-10 MCG / 10 MCG Tab 06/13/2022 Active sertraline (ZOLOFT) 50 MG tabletIndicatio ns: depression Take 0.5 tablets (25 mg total) by mouth daily. 90 tablet 3 06/21/2022 Active Active Problems Problem Noted Date Diagnosed Date depression 01/14/2022 Gastroesophageal reflux dise ase, unspecified whether esophagitis present 12/25/2020 Overview (12/25/2020): Added automatically from request for surgery [id number] Gastroesophageal reflux dise ase with esophagitis, unspecified whether hemorrhage 11/13/2020 Brain fog 11/13/2020 Chronic right ear pain 05/13/2020 Seasonal allergies 05/13/2020 Encounter for elective induction of labor 2018 Immunizations Immunization Administration Dates Next Due Fluzone 6 Months+ Quad (0.5 mL Prefilled Syringe) 07/27/2020 Influenza Adult (Generic) 07/21/2021,,07/25/2019,2017,08/08/2017 Tdap (Generic) 08/19/2021,10/15/2015 Family History Medical History Relation Comments Hypertension Father Colon Cancer Maternal Grandmother Arthritis Mother Alzheimers Paternal Grandfather Relation Status Comments Brother Alive Father Alive Maternal Grandfather Alive Maternal Grandmother Mother Alive Paternal Grandfather Paternal Grandmother Social History Tobacco Use Types Packs/Day Years Used Date Smoking Tobacco: Never Smokeless Tobacco: Never Tobacco Cessation:Counseling Given: No Alcohol Use Standard Drinks/Week Comments Yes 3.3 (1 standard drink = 0.6 oz p ure alcohol) socially PHQ-2 Answer Date Recorded PHQ-2 Score - If the patient scores above 3, please move on to questions 3-9 0 06/21/2022 Comments No Sex and Gender Information Value Date Recorded Sex Assigned at Not on file Legal Sex Female 8:05 PM CDT Gender Identity Not on file Sexual Orientation Not on file Last Filed Vital Signs Vital Sign Reading Time Taken Comments Blood Pressure 104/74 06/21/2022 3:35 PM CDT Pulse 75 06/21/2022 3:35 PM CDT Temperature 36.7 C (98.1 F) 06/21/2022 3:35 PM CDT Respiratory Rate 16 06/21/2022 3:35 PM CDT Oxygen Saturation 98% 06/21/2022 3:35 PM CDT Inhaled Oxygen Concentration - - Weight 73 kg (161 lb) 06/21/2022 3:35 PM CDT Height 167.6 cm (5' 6) 06/21/2022 3:35 PM CDT Body Mass Index 25.99 06/21/2022 3:35 PM CDT Plan of Treatment Health Maintenance Due Date Last Done Comments Hepatitis C 2005 Hepatitis B Vaccines (1 of 3 - 19+ 3-dose series) 2006 HPV Vaccines (1 - 3-dose SCDM series) 2014 Cervical Cancer Screening Pap with HPV Testing (Age 30 to 64) Every 5 Years 2017 Cervical Cancer Screening Pap Smear (Age 30 to 64) Every 3 Years 05/11/2023 05/11/2020 Cervical Cancer Screening with HPV 05/11/2023 Annual Physical 06/21/2023 06/21/2022 PHQ-2 (Physician [place]) 10/30/2024 COVID-19 Vaccine ( season) 2025 09/10/2021, 02/07/2021, 01/12/2021 Influenza Adult (#1) 2025 07/21/2021, 07/27/2020, 07/27/2020, Additional history exists DTaP, Tdap and Td Vaccines (3 - Td or Tdap) 08/19/2031 08/19/2021, 10/15/2015 Hepatitis A Vaccines Aged Out No long er eligible based on patient's age to complete this topic Meningococcal B Vaccine Aged Out No l onger eligible based on patient's age to complete this topic Meningococcal Vaccine Aged Out No jorge l bea eligible based on patient's age to complete this topic Pneumococcal Vaccine: Pediatrics (0 to 5 Years) and At-Risk Patients (6 to 49 Years) Aged Out No longer eligible based on patient's age to complete this topic RSV Immunizations Under 20 Months Aged Out No longer eligible based on patient's age to complete this topic Insurance Care Teams Tent Assembler Relationship Specialty Start Date End Date Ria Blackburn NP [address] [place] [address] PCP - General NURSE PRACTITIONER 05/13/20 Ria Blackburn NP [address] [facility], [address] [place] [address] NURSE PRACTITIONER 05/13/20
[2025-10-24 08:39] VITALS: BP 139/89; PULSE 74; RESP 18; TEMP 36.7; O2SAT 100
--- NOTE | 2025-10-24 08:40 | PC.NURSE ---
Patient states she got a massage on the and states she began having a still neck on the and the blurry vision in the right eye began yesterday morning.
--- NOTE | 2025-10-24 09:01 | ED.GENADULT ---
HPI - General Adult General Chief complaint: Unspecified <Ofelia Jensen APRN - Last Filed: 10/24/25 14:39> Stated complaint: neck stiffness, blurry vision <Ofelia Jensen APRN - Last Filed: 10/24/25 14:39> Time Seen by Provider: 10/24/25 09:00 <Ofelia Jensen APRN - Last Filed: 10/24/25 14:39> History of Present Illness HPI narrative: Patient is a 40-year-old female who presents to the ER with a stiff neck and blurred vision. She reports she had a massage on October 20, 4 days ago. The next morning she woke up with a ?stiff neck.Yesterday morning around 9:00 a.m. patient started experiencing blurred vision in her right eye. She reports she wears contacts, and has them in at this time, but her vision has changed. Patient reports she has taken Tylenol at home which has helped relieve her neck pain. She denies any headache, recent fevers, congestion, or cough. Patient endorses ?sinus drainage for the past month. She also endorses a mildly sore throat. Patient denies any curtains in her vision or decreased peripheral vision. She reports her vision is ?fuzzy. Patient denies any medical history relevant to this ER visit and reports the only medication she takes is Lexapro. <Ofelia Jensen APRN - Last Filed: 10/24/25 14:39> Related Data Home medications: Home Medications ?Medication ?Instructions ?Recorded ?Confirmed ?Last Taken ?Type loratadine 10 mg tablet (Claritin) 10 mg PO DAILY 08/03/23 07/26/24 Unknown History escitalopram oxalate 10 mg tablet 10 mg DIRECTED 07/26/24 07/26/24 Unknown History <Ofelia Jensen APRN - Last Filed: 10/24/25 14:39> Allergies/adverse reactions: Allergies Allergy/AdvReac Type Severity Reaction Status Date / Time hydrocodone AdvReac Vomiting Verified 10/24/25 08:06 <Ofelia Jensen APRN - Last Filed: 10/24/25 14:39> Review of Systems Review of Systems: All systems reviewed & are unremarkable except as noted in HPI and below <Ofelia Jensen APRN - Last Filed: 10/24/25 14:39> PMFSH Past Medical History Medical History: Medical History (Updated 10/24/25 @ 14:09 by Ofelia Jensen APRN) Allergies <Ofelia Jensen APRN - Last Filed: 10/24/25 14:39> Surgical History Surgical History: Surgical History No history of previous surgery <Ofelia Jensen APRN - Last Filed: 10/24/25 14:39> Family History Family History: Family History Father Hypertension Mother No problems noted. <Ofelia Jensen APRN - Last Filed: 10/24/25 14:39> Social History Social History: Social History Smoking status: Never smoker Second hand tobacco smoke exposure: No Alcohol intake: current Drinks per week: 2 Substance use: never Substance use type: does not use Living arrangements: other Gender identity (if verbalized by the patient): Female <Ofelia Jensen APRN - Last Filed: 10/24/25 14:39> Exam Narrative: GENERAL: Well appearing, well-nourished, non-toxic, in no acute distress. HEAD: Normocephalic, atraumatic. PERRLA. No foreign objects noted. NECK: Supple. No adenopathy, no masses. RESPIRATORY: Airway patent, respirations nonlabored. Clear to auscultation bilaterally, no rales, rhonchi, wheezing. CARDIOVASCULAR: Regular rate and rhythm without murmurs, rubs, or gallops. Peripheral pulses 2+ and equal bilaterally. ABDOMINAL: Soft, nontender, nondistended, no hepatosplenomegaly. Normoactive BS. MUSCULOSKELETAL: Moves all extremities. Strength/ROM intact without gross deformities. SKIN: Warm, dry, normal color. No rashes. NEURO: A&O X3. Speech clear. Cranial nerves II-XII intact. No ataxic movements. PSYCHIATRIC: Appropriate mood and affect. Normal interaction. Endorses anxiety OPTIC: Patient reports she believes she has a contact in her right eye, but upon further examination patient does not have one in. 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 I performed all aspects of the Medical Decision Making as documented. <Darrell Shipley MD - Last Filed: 10/24/25 17:58> Vital Signs Vital signs: Vital Signs Temperature 98.1 F 10/24/25 08:39 Pulse Rate 74 10/24/25 08:39 Respiratory Rate 18 10/24/25 08:39 Blood Pressure 139/89 10/24/25 08:39 Pulse Oximetry 100 10/24/25 08:39 Temperature 98.1 F 10/24/25 08:39 Pulse Rate 87 10/24/25 14:00 Respiratory Rate 18 10/24/25 14:00 Blood Pressure 134/81 10/24/25 14:00 Pulse Oximetry 97 10/24/25 14:00 <Ofelia Jensen, CHILDREN'S BOOK AUTHOR - Last Filed: 10/24/25 14:39> Vital Signs Temperature 98.1 F 10/24/25 08:39 Pulse Rate 74 10/24/25 08:39 Respiratory Rate 18 10/24/25 08:39 Blood Pressure 139/89 10/24/25 08:39 Pulse Oximetry 100 10/24/25 08:39 Temperature 98.1 F 10/24/25 08:39 Pulse Rate 87 10/24/25 14:00 Respiratory Rate 18 10/24/25 14:00 Blood Pressure 134/81 10/24/25 14:00 Pulse Oximetry 97 10/24/25 14:00 <Darrell Shipley MD - Last Filed: 10/24/25 17:58> [facility] MDM Narrative Medical decision making narrative: Patient is a 40-year-old female who presents to the ER with a stiff neck and blurred vision. She reports she had a massage on October 20, 4 days ago. The next morning she woke up with a ?stiff neck.Yesterday morning around 9:00 a.m. patient started experiencing blurred vision in her right eye. She reports she wears contacts, and has them in at this time, but her vision has changed. Patient reports she has taken Tylenol at home which has helped relieve her neck pain. She denies any headache, recent fevers, congestion, or cough. Patient endorses ?sinus drainage for the past month. She also endorses a mildly sore throat. Patient denies any curtains in her vision or decreased peripheral vision. She reports her vision is ?fuzzy. Patient denies any medical history relevant to this ER visit and reports feeling medication she takes is Lexapro. Labs Ordered: CBC, CMP, TSH, mono test, strep test Imaging Ordered: CT brain, CTA brain/carotid Medications Ordered: Tetracaine optic, Ativan p.o. 0.5 mg x2, fluorecin strip Results: Pt's CT scan indicates 1. No evident atherosclerotic plaque with 0% stenosis of the right and left carotid bulbs relative to normal distal artery lumen diameter (NASCET criteria). 2. No acute intracranial process or abnormally enhancing brain lesions. 3. Unremarkable cerebral CT angiogram with no hemodynamically significant stenosis, aneurysm or thrombosis. * Upon further evaluation, patient reports she thought her she had her contact lens in her right eye, but it is actually not in her eyeball while she has been in the emergency department. Pt's went home to retrieve her R contact lens. She placed the contact lens back in her eye and had no relief of symptoms. Pt reports she continues to have generalized blurriness in all visual li. Diagnosis: Tetracaine and fluorecin were placed in patient's R eye. A Wood's lamp was used to assess pt's eye. No scratches, foreign objects, or injury was noted to patient's eye ball. Pt's eye pressures were 9, 10, 11, 10, 11. Consults: ophthalmology ([facility]) 1330-Spoke with [facility], Dr. Dawn, who advised patient present to [facility] so ophthalmology could do further evaluation. 1400- Results of imaging and lab work shared with patient and her family. It was advised patient be transferred to a tertiary hospital for further evaluation and treatment. Patient and her family verbalized understanding and are in agreement with plan. 1430- EMS here to transport pt to [facility]. Pt is alert and oriented x 3. VSS at time of discharge from ER. <Ofelia Jensne, CHILDREN'S BOOK AUTHOR - Last Filed: 10/24/25 14:39> Differential Diagnosis Differential Diagnosis: Optic neuritis, CVA, neck strain, arterial dissection, migraine headache <Ofelia Jensen CHILDREN'S BOOK AUTHOR - Last Filed: 10/24/25 14:39> Lab Data [facility] Lab Attestation statement: I personally reviewed the patient's lab results. <Ofelia Jensen, CHILDREN'S BOOK AUTHOR - Last Filed: 10/24/25 14:39> Result diagrams: 10/24/25 10:00 10/24/25 10:00 <Ofelia Jensen CHILDREN'S BOOK AUTHOR - Last Filed: 10/24/25 14:39> Labs: Lab Results 10/24/25 Range/Units 10:00 WBC 7.7 (4.5-10.0) K/mm3 RBC 4.98 (4.2-5.4) M/mm3 Hgb 14.5 (12.0-15.0) g/dL Hct 42.7 (37.0-47.0) % MCV 85.7 (80-100) fl MCH 29.1 (26-34) pg MCHC 34.0 (32-36) g/dl RDW 12.9 (11.5-14.5) % Plt Count 214 (150-375) k/mm3 MPV 11.1 H (7.4-10.4) fl Immature Gran % (Auto) 0.4 (0-0.5) % Neut % (Auto) 70.9 (45.5-73.1) % Lymph % (Auto) 17.4 L (18.3-44.2) % [place] % (Auto) 7.8 (2.6-8.5) % Eos % (Auto) 2.7 (0-4.4) % Baso % (Auto) 0.8 (0.2-1.2) % Lymph # (Auto) 1.34 (0.9-3.2) K/mm3 [place] # (Auto) 0.6 (0.1-0.6) K/mm3 Eos # (Auto) 0.2 (0-0.3) K/mm3 Baso # (Auto) 0.1 (0.0-0.1) K/mm3 Abs Immat Gran (auto) 0.03 (0.00-0.031) K/mm3 Absolute Neuts (auto) 5.4 (1.3-6.7) K/mm3 Absolute Nucleated RBC 0.000 (0.0-0.012) K/mm3 Nucleated RBC % 0.0 (0.0-0.2) % Sodium 135 L (137-145) mmol/L Potassium 4.2 (3.4-5.0) mmol/L Chloride 104 (98-107) mmol/L Carbon Dioxide 25 (22-30) mmol/L Anion Gap 6 (4-12) mmol/L BUN 13 (7-17) mg/dL Creatinine 0.60 L (0.7-1.0) mg/dL Estim Creat Clear Calc 105 ml/min Estimated GFR > 60 (59 - ) Glucose 93 (65-110) mg/dL Calcium 9.6 (8.4-10.2) mg/dL Total Bilirubin 0.6 (0.2-1.3) mg/dL AST 34 (14-36) U/L ALT 31 (6-35) U/L Alkaline Phosphatase 45 (38-126) U/L Total Protein 8.3 H (6.3-8.2) g/dL Albumin 4.7 (3.5-5.1) g/dL TSH 2.270 (0.465-4.680) uIU/mL Monoscreen Negative (Negative) Group A Strep (PCR) Not detected (Negative) <Ofelia Jensen, CHILDREN'S BOOK AUTHOR - Last Filed: 10/24/25 14:39> Lab Results 10/24/25 Range/Units 10:00 WBC 7.7 (4.5-10.0) K/mm3 RBC 4.98 (4.2-5.4) M/mm3 Hgb 14.5 (12.0-15.0) g/dL Hct 42.7 (37.0-47.0) % MCV 85.7 (80-100) fl MCH 29.1 (26-34) pg MCHC 34.0 (32-36) g/dl RDW 12.9 (11.5-14.5) % Plt Count 214 (150-375) k/mm3 MPV 11.1 H (7.4-10.4) fl Immature Gran % (Auto) 0.4 (0-0.5) % Neut % (Auto) 70.9 (45.5-73.1) % Lymph % (Auto) 17.4 L (18.3-44.2) % [place] % (Auto) 7.8 (2.6-8.5) % Eos % (Auto) 2.7 (0-4.4) % Baso % (Auto) 0.8 (0.2-1.2) % Lymph # (Auto) 1.34 (0.9-3.2) K/mm3 [place] # (Auto) 0.6 (0.1-0.6) K/mm3 Eos # (Auto) 0.2 (0-0.3) K/mm3 Baso # (Auto) 0.1 (0.0-0.1) K/mm3 Abs Immat Gran (auto) 0.03 (0.00-0.031) K/mm3 Absolute Neuts (auto) 5.4 (1.3-6.7) K/mm3 Absolute Nucleated RBC 0.000 (0.0-0.012) K/mm3 Nucleated RBC % 0.0 (0.0-0.2) % Sodium 135 L (137-145) mmol/L Potassium 4.2 (3.4-5.0) mmol/L Chloride 104 (98-107) mmol/L Carbon Dioxide 25 (22-30) mmol/L Anion Gap 6 (4-12) mmol/L BUN 13 (7-17) mg/dL Creatinine 0.60 L (0.7-1.0) mg/dL Estim Creat Clear Calc 105 ml/min Estimated GFR > 60 (59 - ) Glucose 93 (65-110) mg/dL Calcium 9.6 (8.4-10.2) mg/dL Total Bilirubin 0.6 (0.2-1.3) mg/dL AST 34 (14-36) U/L ALT 31 (6-35) U/L Alkaline Phosphatase 45 (38-126) U/L Total Protein 8.3 H (6.3-8.2) g/dL Albumin 4.7 (3.5-5.1) g/dL TSH 2.270 (0.465-4.680) uIU/mL Monoscreen Negative (Negative) Group A Strep (PCR) Not detected (Negative) <Darrell Shipley MD - Last Filed: 10/24/25 17:58> Imaging Data Attestation: I personally reviewed and interpreted this imaging study as follows: <Ofelia Jensen APRN - Last Filed: 10/24/25 14:39> Radiologist's impression: ITS Impressions Head/Neck CTA 10/24/25 11:13 IMPRESSION: 1. No evident atherosclerotic plaque with 0% stenosis of the right and left carotid bulbs relative to normal distal artery lumen diameter (NASCET criteria). 2. No acute intracranial process or abnormally enhancing brain lesions. 3. Unremarkable cerebral CT angiogram with no hemodynamically significant stenosis, aneurysm or thrombosis. <Ofelia Jensen APRN - Last Filed: 10/24/25 14:39> ITS Impressions Head/Neck CTA 10/24/25 11:13 IMPRESSION: 1. No evident atherosclerotic plaque with 0% stenosis of the right and left carotid bulbs relative to normal distal artery lumen diameter (NASCET criteria). 2. No acute intracranial process or abnormally enhancing brain lesions. 3. Unremarkable cerebral CT angiogram with no hemodynamically significant stenosis, aneurysm or thrombosis. <Darrell Shipley MD - Last Filed: 10/24/25 17:58> Discharge Plan Discharge Clinical Impression: Optic neuritis, right, Neck pain on right side, Vision changes <Ofelia Jensen APRN - Last Filed: 10/24/25 14:39> Patient Disposition: [facility] <Ofelia Jensen APRN - Last Filed: 10/24/25 14:39> Condition: Stable <Ofelia Jensen APRN - Last Filed: 10/24/25 14:39> Patient Language: Comoran <Ofelia Jensen APRN - Last Filed: 10/24/25 14:39> Prescriptions: No Action escitalopram oxalate 10 mg tablet 10 mg DIRECTED loratadine [Claritin] 10 mg Tablet 10 mg PO DAILY <Ofelia Jensen APRN - Last Filed: 10/24/25 14:39> Follow-up/Referrals: UNKNOWN,DOCTOR [Non-Staff] <Ofelia Jensen APRN - Last Filed: 10/24/25 14:39>
--- OUTSIDE RECORDS SUMMARY | 2025-10-24 09:03 | XMS_ITS | Clinical Summary ---
Author Organization [facility] Address [address] [place] [address] Care Team Providers Care Data Services Developer Name Role Phone Ria Blackburn NP Primary Care Provider [phone] Ria Blackburn NP Unavailable [phone] Allergies Active Allergy Reactions Criticality Noted Date [...] (12/25/2020): Added automatically from request for surgery [id number] Gastroesophageal reflux dise ase with esophagitis, unspecified [...] 05/11/2023 Annual Physical 06/21/2023 06/21/2022 PHQ-2 (Physician [place]) 10/30/2024 COVID-19 Vaccine ( season) 2025 09/10/2021, [...] to complete this topic Insurance Care Teams Data Services Developer Relationship Specialty Start Date End Date Ria Blackburn NP [address] [place] [address] PCP - General NURSE PRACTITIONER 05/13/20 Ria Blackburn NP [address] [facility], [address] [place] [address] NURSE PRACTITIONER 05/13/20
--- OUTSIDE RECORDS SUMMARY | 2025-10-24 09:03 | XMS_ITS | Clinical Summary ---
Author Organization [facility] Address [address] [place] [address] Care Team Providers Care Data Warehousing Engineer Name Role Phone Unavailable Primary Care Provider Unavailabl e Allergies Active Allergy Reactions Criticality Noted Date Comments Hydrocodone Other (See Comments) 11/13/2020 nausea Medications fluticasone propionate (FLONASE) 50 mcg/spray [place], Suspension nasal inhaler Administer 2 Sprays in [...] Clinical Support Domi at Work Nurse Navigation [address] [place] [address] Need for influenza vaccination (Primary [...] Comments Blood Pressure 102/78 11/23/2023 3:52 PM MICROSOFT ACCESS DEVELOPER Pulse 71 09/11/2023 12:56 PM MICROSOFT ACCESS DEVELOPER Temperature 36.1 C (97 F) 09/11/2023 12:56 PM MICROSOFT ACCESS DEVELOPER Respiratory Rate 12 09/11/2023 12:56 PM MICROSOFT ACCESS DEVELOPER Oxygen Saturation 98% 09/11/2023 12:56 PM MICROSOFT ACCESS DEVELOPER Inhaled Oxygen Concentration - - Weight 72.6 kg (160 lb) 03/07/2024 12:55 PM CDT Height 167.6 cm (5' 6) 03/07/2024 12:55 PM CDT Body Mass Index 25.82 03/07/2024 12:55 PM CDT Plan of Treatment Upcoming Encounters Date Type Department Care Team (Late st Contact Info) Description 11/19/2025 11:40 AM MICROSOFT ACCESS DEVELOPER Office Visit [facility] RIDER TICKET WORKER Medical [facility] [address] [facility] [address] [place] [address] Valerie Martinez NP [address] [facility] [address] [place] [id number] Health Maintenance Due Date Last Done Comments [...] BASED SCREEN PAP Routine 11/23/2023 4:58 PM MICROSOFT ACCESS DEVELOPER Encounter for gynecological examination without abnormal finding Screening for human papillomavirus (HPV) from Last 3 Months or Most Recently Relevant to Health Maintenance Results * CERV/VAG CYTO AGE BASED SCREEN PAP (11/23/2023 4:58 PM MICROSOFT ACCESS DEVELOPER) COMMENT (PAP): [facility] [place] Comment: This order for age-based cervical cancer and STI screening follows ACOG guidelines(PB 168, 140, TOD488). See individual assays for performing site location. CLINICAL INFORMATION [facility] [place] Comment:Routine exam LAST MENSTRUAL PERIOD [facility] [place] Comment:11/13/2023 PREV PAP: [facility] [place] Comment:10/12/2022 NIL PREV BX: [facility] [place] Comment:NONE GIVEN SOURCE [facility] [place] Comment:Endocervix ADEQUACY: [facility] [place] Comment: Satisfactory for evaluation. Endocervical/transformation zone component present. PAP INTERP [facility] [place] Comment: Cytology Results: Negative for intraepithelial lesion or malignancy. COMMENT (PAP TEST) [facility] [place] Comment: This Pap test has been evaluated with computer assisted technology. PLANTING MACHINE CREWMAN: Deep[facility] Pr[facility] [place] Comment: INDY MCNALLY(ASCP) CT Screening location: [facility] [place] [address] EXPLANATORY NOTE [facility] [place] Comment: EXPLANATORY NOTE: The Pap is [...] information. HPV E6/E7 Not Detected Not Detected [facility] [place] Comment: Methodology: [facility] [employer] [facility]-Mediated Amplification This assay detects E6/E7 viral messenger RNA (mRNA) from 14 high-risk HPV types (16,18,31,33,35,39,45,51,52,56,58,59,66,68). Cervical sources are required for HPV testing. If a vaginal source from a patient who has had a total hysterectomy with removal of cervix was submitted, please contact the testing laboratory for alternative testing options. For additional information, please refer to http://education.Reach.ly/faq/IRF581u6 (This link if provided for information/ educational purposes only.) Test Performed at: [facility] [address] [place], [place] [address] Celia MENDOZA Genital SWAB OF ENDOCERVIX / Unknown 11/23/2023 4:58 PM MICROSOFT ACCESS DEVELOPER 11/23/2023 11:06 PM MICROSOFT ACCESS DEVELOPER Valerie Martinez NP PATHOLOGY/CYTOLOGY O RDERABLES Final Result [facility] [phone] [facility] [id number], [place] [address] from Last 3 Months or Most Recently Relevant to Health Maintenance Insurance BS BLUE ACCESS/TRUE BLUE PPO Advance Directives For more information, please contact: [phone] * Full Code (Latest Code Status on [...]
--- OUTSIDE RECORDS SUMMARY | 2025-10-24 09:03 | XMS_ITS | Encounter Summary ---
Author Organization [facility] Address [address] [place] [address] Care Team Providers Care Garage Door Opener Installer Name Role Phone Ria Blackburn NP Primary Care Provider [phone] Ria Blackburn PROFESSOR OF POULTRY SCIENCE Unavailable [phone] Encounter Details Date Type Department Care Team (Late st Contact Info) Description 12/28/2020 Prep for Procedure [facility] [place], [place] [id number] Trell Goode MD [address] [id number] Social History Tobacco Use Types Packs/Day Years [...] COVID-19? No / Unsure 12/31/2020 7:07 AM COMPOUND FINISHER documented as of this encounter Plan of Treatment Not on file documented as of this encounter Results * PRE-SURGICAL/PRE-PROCEDURE CORONAVIRUS (COVID 19) (12/28/2020 9:45 AM COMPOUND FINISHER) CORONAVIRUS SARS COV 2 PCR (RESP) NOT DETECTED NOT DETECTED 12/29/2020 11:21 PM COMPOUND FINISHER [facility] Comment: A Not Detected (negative) test result [...] providers and patients using the following websites: https://www.PROSimity.Xcedex/home/Covid-19/HCP/[facility]/fact- sheet.html https://www.PROSimity.Xcedex/home/Covid-19/Patients/ [facility]/fact-sheet.html This test has been authorized by the FDA under an Emergency Use Authorization (EUA) for use by authorized laboratories. Due to the current public health emergency, [facility] is receiving a high volume of samples [...] about COVID-19 can be found at the [facility] website: www.BeiBei.Xcedex/Covid19. Test performed at [facility] [address] [address] Director: CHALO DUMONT DO,MPH FIRST TEST NO 12/28/2020 10:33 AM [facility] EMPLOYED IN HEALTHCARE NO 12/28/2020 10:33 AM [facility] SYMPTOMATIC DEFINED BY CDC NO 12/28/2020 10:33 AM [facility] DATE OF SYMPTOM ONSET NO 12/28/2020 10:54 AM [facility] HOSPITALIZATION STATUS NO 12/28/2020 10:33 AM [facility] PATIENT IN ICU NO 12/28/2020 10:33 AM [facility] RESIDENT OF [facility] NO 12/28/2020 10:33 AM [facility] NOT 12/28/2020 10:33 AM [facility] PATIENT'S RACE WHITE OR 12/28/2020 10:33 AM [facility] ETHNICITY NONHISPANIC 12/28/2020 10:33 AM [facility] SOURCE (QST) NASOPHARYNGEAL SWAB 12/28/2020 10:33 AM [facility] NASOPHARYNGEAL SWAB / Unknown 12/28/2020 9:45 AM COMPOUND FINISHER us Trell Goode MD MICROBIOLOGY - GENERAL ORDERABLE S Final Result [facility] [address] [place] [address], [facility] [address] [place] [place] [address] documented in this encounter Visit Diagnoses Diagnosis Acid reflux- Primary Esophageal reflux documented in this encounter Additional Health Concerns Infection Onset Date Last Indicated Resolved Time COVID-19 Rule Out 12/28/2020 12/28/2020 12/29/2020 11:21 PM COMPOUND FINISHER documented as of this encounter Care Teams Garage Door Opener Installer Relationship Specialty Start Date End Date Ria Blackburn NP [address] [place] [address] PCP - General NURSE PRACTITIONER 05/13/20 Ria Blackburn NP [address] [facility], [address] [place] [address] NURSE PRACTITIONER 05/13/20 documented as of this encounter
[2025-10-24 10:09] LABS: Hematocrit 42.7 % (37.0-47.0); Hemoglobin 14.5 g/dL (12.0-15.0); Immature Granulocyte Percent A 0.4 % (0-0.5); Lymphocytes Absolute Auto 1.34 K/mm3 (0.9-3.2); Mean Corpuscular HGB Conc 34.0 g/dl (32-36); Mean Corpuscular Hemoglobin 29.1 pg (26-34); Mean Corpuscular Volume 85.7 fl (80-100); Nucleated Red Blood Cells Absolute Auto 0.000 K/mm3 (0.0-0.012); Nucleated Red Blood Cells Perc 0.0 % (0.0-0.2); Platelet Count Result 214 k/mm3 (150-375); Red Blood Count 4.98 M/mm3 (4.2-5.4); White Blood Count 7.7 K/mm3 (4.5-10.0)
[2025-10-24] MEDS: LORazepam (*CRX) 0.5 MG TABLET PO (10:14)
[2025-10-24] MEDS: TETRACAINE HCL 0.5% OPHTH SOLN 4 ML BTL 1 DROP EACH EYE (10:16)
[2025-10-24] MEDS: FLUORESCEIN SOD 1 MG/STRIP EACH EYE (10:16)
[2025-10-24 10:22] LABS: Alanine Aminotransferase 31 U/L (6-35); Albumin Level 4.7 g/dL (3.5-5.1); Alkaline Phosphatase 45 U/L (38-126); Anion Gap 6 mmol/L (4-12); Aspartate Amino Transferase 34 U/L (14-36); Bilirubin,Total 0.6 mg/dL (0.2-1.3); Blood Urea Nitrogen 13 mg/dL (7-17); Calcium 9.6 mg/dL (8.4-10.2); Carbon Dioxide 25 mmol/L (22-30); Chloride 104 mmol/L (98-107); Estimated CRCL calculation 105 ml/min; Estimated Glomerular Filt Rate > 60; Glucose 93 mg/dL (65-110); Potassium 4.2 mmol/L (3.4-5.0); Sodium 135 mmol/L (137-145); Total Protein 8.3 g/dL (6.3-8.2)
[2025-10-24 10:29] LABS: Negative Monotest Control Negative (Negative); Positive Monotest Control Positive (Positive)
[2025-10-24 10:30] VITALS: BP 132/75; PULSE 87; RESP 18; O2SAT 98
[2025-10-24 10:33] LABS: Strep Group A RT-PCR NOT DETECTED (Negative)
[2025-10-24 10:50] LABS: Thyroid Stimulating Hormone 2.270 uIU/mL (0.465-4.680)
[2025-10-24 11:30] VITALS: BP 112/82; PULSE 80; RESP 18; O2SAT 97
[2025-10-24 12:59] VITALS: BP 117/86; PULSE 86; RESP 18; O2SAT 98
[2025-10-24 14:00] VITALS: BP 134/81; PULSE 87; RESP 18; O2SAT 97
== END 2025-10-24 14:53 | disposition short-term general hospital (02) ==
PROVIDERS: Emergency Provider Registered Nurse; PCP Physician Assistant
DX: H46.9 Unspecified optic neuritis (principal); M54.2 Cervicalgia; H53.8 Other visual disturbances; Z79.899 Other long term (current) drug therapy
CPT/HCPCS: 36415; 70496; 70498; 80053; 84443; 85025; 86308; 87651; 99285; A9270; Q9967